=== PATIENT | female | born 1930 | race Caucasian/White ===

== ENCOUNTER 2016-07-23 06:50 | Outpatient (CLI) ==
[2016-07-23 07:13] VITALS: BMI 21.9
== END 2016-07-23 06:51 | disposition home or self-care (01) ==
LOC: AMBL 06:50
PROVIDERS: ATTEND Family Medicine
DX: J18.9 Pneumonia, unspecified organism (principal); R06.02 Shortness of breath; R05 Cough; R06.2 Wheezing; R09.89 Other specified symptoms and signs involving the circulatory and respiratory systems; R00.0 Tachycardia, unspecified

== ENCOUNTER 2016-07-23 07:02 | Emergency (ER) ==
[2016-07-23 07:13] VITALS: BP 144/63; TEMP 99.1; BMI 21.9
--- NOTE | 2016-07-23 07:21 | ED.PDOC ---
General ED Provider: Dr. MINERVA SHERIFF JR Chief Complaint: Respiratory Complaint Stated Complaint: patient states she has a cough prod. of thick yellow phlegm. states she has been short of breath. states has nasal drainage going down back of throat.[ End ]2 weeks and more DNR 99.1 102 24 100 144/63 10/20 Time Seen by Physician: 07:22 Mode of Arrival: Walk-In Information Source: Patient Exam Limitations: No limitations Nursing and Triage Documentation Reviewed and Agree: No Review of Systems - Review Of Systems Constitutional: Reports: Chills, Malaise, Weakness, Other (uri ) Eyes: Reports: No symptoms Ears, Nose, Mouth, Throat: Reports: Nose pain, Nose discharge, Throat pain Respiratory: Reports: Cough (yellow sputum), Short of air, Wheezing Cardiac: Reports: Other GI: Reports: No symptoms : Reports: No symptoms Musculoskeletal: Reports: No symptoms Skin: Reports: No symptoms Neurological: Reports: Headache Endocrine: Reports: No symptoms Hematologic/Lymphatic: Reports: No symptoms All Other Systems: Other Past Medical History - Past Medical History Endocrine: Reports: Hypothyroid Cardiovascular: Reports: CAD Respiratory: Reports: COPD Hematological: Reports: None Gastrointestinal: Reports: PUD Genitourinary: Reports: None Neuro/Psych: Reports: None Musculoskeletal: Reports: None Cancer: Reports: Lung Last Menstrual Period: n/a Other Pertinent Past Medical History: glaucoma - Surgical History General Surgical History: Reports: Pacemaker, Other (upper left lung removed pacemaker[ End ]glaucoma ca thy copd cad) - Family History Family History: Reports: Unknown - Social History Smoking Status: Former smoker Hx Substance Use: No Alcohol Screening: Occasionally Physical Exam - Physical Exam Appearance: Ill-appearing, Thin Ill-appearing: Moderate Pain Distress: Moderate Eyes: NATALYA, EOMI, Conjunctiva clear ENT: Ears normal, Nose normal, Oropharynx normal Neck: Supple Respiratory: Airway patent, Breath sounds diminished, Crackles, Rhonchi Cardiovascular: RRR, Pulses normal, No rub, No murmur GI/: Soft, Nontender, No masses, Bowel sounds normal, No Organomegaly Musculoskeletal: Normal strength, ROM intact, No edema, No calf tenderness Skin: Warm, Dry, Normal color Neurological: Sensation intact, Motor intact, Reflexes intact, Cranial nerves intact, Alert, Oriented Psychiatric: Affect appropriate, Mood appropriate, Anxious Interpretation - Radiology Interpretation Radiology Interpretation By: Radiologist Radiology Results: Positive Exam Interpreted: CXR (JACI possible pneumonia) Radiology Interpretation By: Radiologist Radiology Results: Positive Exam Interpreted: CT Scan (consistent with JACI and right hilar pneumonia) - EKG Interpretation Time of EKG #1: 07:35 Rate: Normal Rhythm: Sinus ST Segment: Other (nonspecific st changes) Physician Notification - Case Discussed Physician Notified: gerardo khan iris- will call back Time of Notification: 10:51 (ans service) Critical Care Note - Critical Care Note Total Time (mins): 10 Course - Course Hematology/Chemistry: 07/23/16 07:50 07/23/16 07:35 Orders, Labs, Meds: Lab Review 07/23/16 07/23/16 07/23/16 07:22 07:35 07:50 WBC 9.13 RBC 2.79 L Hgb 7.0 L Hct 23.1 L MCV 82.8 MCH 25.1 L MCHC 30.3 L RDW Coeff of Nuha 17.2 H Plt Count 350 Immature Gran % (Auto) 0.3 Neut % (Auto) 79.7 Lymph % (Auto) 12.4 [place] % (Auto) 5.9 Eos % (Auto) 1.4 Baso % (Auto) 0.3 Immature Gran # (Auto) 0.0 Neut # 7.3 H Lymph # 1.1 [place] # 0.5 Eos # 0.1 Baso # 0.0 Puncture Site Rb O2 Saturation 93.0 L ABG pH 7.431 ABG pCO2 35.3 ABG pO2 64.0 L ABG HCO3 23.5 ABG Total CO2 25 ABG Base Excess -1 FiO2 % 21.0 Sodium 136 Potassium 3.9 Chloride 102 Carbon Dioxide 24 Anion Gap 13.9 BUN 14 Creatinine 0.85 Estimated GFR (MDRD) 64.00 BUN/Creatinine Ratio 16.47 Glucose 101 Lactic Acid 9.6 Calcium 8.9 Total Bilirubin 0.20 AST 10 L ALT 7 L Alkaline Phosphatase 54 Total Creatine Kinase 30 Troponin I < 0.0100 B-Natriuretic Peptide 160 H Total Protein 7.4 Albumin 3.1 L Globulin 4.3 Albumin/Globulin Ratio 0.72 Procalcitonin < 0.05 TSH 7.637 H Orders Category Date Time Status ABG DRAW REQUEST Stat CARDIO 07/23/16 07:24 Completed EKG-(ED ONLY) Stat CARDIO 07/23/16 07:22 Completed NEBULIZER TREATMENT Stat CARDIO 07/23/16 09:46 Completed ED APPLY O2 .ONCE EMERGENCY 07/23/16 07:22 Active ED METALLURGIST PROCESS APPLIED .ONCE EMERGENCY 07/23/16 07:22 Active ED IV/MEDIPORT/POWERPORT .ONCE EMERGENCY 07/23/16 07:22 Active ABG Stat LAB 07/23/16 07:22 Completed B-TYPE NATRIURETIC PEPTIDE Stat LAB 07/23/16 07:35 Completed BLOOD CULTURE Stat LAB 07/23/16 07:35 Received CBC W/ AUTO DIFF Stat LAB 07/23/16 07:50 Completed COMPREHENSIVE METABOLIC PANEL Stat LAB 07/23/16 07:35 Completed CREATINE KINASE Stat LAB 07/23/16 07:35 Completed LACTIC ACID Stat LAB 07/23/16 07:35 Completed PROCALCITONIN Stat LAB 07/23/16 07:35 Completed THYROID STIMULATING HORMONE Stat LAB 07/23/16 07:35 Completed TROPONIN I Stat LAB 07/23/16 07:35 Completed 0.9 % Sodium Chloride [Saline Flush] MEDS 07/23/16 07:22 Active 1 syr IVF PRN PRN Albuterol Sulfate 0.083% Neb [Albuterol 0.083% Neb] MEDS 07/23/16 09:46 Discontinued 1 vial NEB ONCE STA Azithromycin Inj [Zithromax] 500 mg MEDS 07/23/16 09:45 Discontinued 0.9 % Sodium Chloride [Sodium Chloride] 250 ml IV ONCE Ceftriaxone Sodium [Rocephin] MEDS 07/23/16 09:49 Discontinued 1 gm .ROUTE .STK-MED ONE Ceftriaxone Sodium [Rocephin] 1 gm MEDS 07/23/16 09:45 Discontinued 0.9 % Sodium Chloride [Sodium Chloride] 50 ml IV ONCE Methylprednisolone Sod Succ/Pf [Solu-Medrol 125 mg] MEDS 07/23/16 09:45 Discontinued 125 mg IVP ONCE STA Sodium Chloride 0.9% [Sodium Chloride] 1,000 ml MEDS 07/23/16 08:22 Active IV 100 mls/hr CHEST, 2 VIEWS PA & LAT Stat RADS 07/23/16 07:[address] CHEST W/O CONTRAST Stat RADS 07/23/16 08:39 Completed Medications Generic Name Dose Route Start Last Admin Trade Name Freq PRN Reason Stop Dose Admin Sodium Chloride 1,000 mls @ 100 mls/hr 07/23/16 08:22 07/23/16 08:23 Sodium Chloride IV 07/23/16 18:21 100 mls/hr .Q10H STA Administration Sodium Chloride 1 syr 07/23/16 07:22 Saline Flush IVF PRN PRN To flush IV Discontinued Medications Generic Name Dose Route Start Last Admin Trade Name Lesq PRN Reason Stop Dose Admin Albuterol Sulfate 1 vial 07/23/16 09:46 07/23/16 10:09 Albuterol 0.083% Neb NEB 07/23/16 09:47 1 vial ONCE STA Administration Azithromycin 500 mg/ Sodium 250 mls @ 125 mls/hr 07/23/16 09:45 07/23/16 10: 58 Chloride IV 07/23/16 11:44 125 mls/hr ONCE STA Administration Ceftriaxone Sodium 1 gm/ 50 mls @ 75 mls/hr 07/23/16 09:45 07/23/16 10:08 Sodium Chloride IV 07/23/16 10:24 75 mls/hr ONCE STA Administration Methylprednisolone Sodium Succinate 125 mg 07/23/16 09:45 07/23/16 10:07 Solu-Medrol 125 Mg IVP 07/23/16 09:46 125 mg ONCE STA Administration Vital Signs: Temp Pulse Resp BP Pulse Ox 07/23/16 07:07 99.1 F 102 H 24 144/63 H 100 Departure - Departure Time of Disposition: 12:47 Disposition: TSF SHORT-TRM HOSP Discharge Problem: Pneumonia Qualifiers: Pneumonia type: due to unspecified organism Laterality: bilateral Lung location : upper lobe of lung Qualifier Code: (J18.9) Pneumonia, unspecified organism Anemia Qualifiers: Anemia type: unspecified type Qualifier Code: (D64.9) Anemia, unspecified Bleeding gastrointestinal Qualifiers: GI bleed type/associated pathology: unspecified gastrointestinal hemorrhage type Qualifier Code: (K92.2) Gastrointestinal hemorrhage, unspecified Instructions: Bacterial Pneumonia (ED) Condition: Fair Pt referred to PMD for follow-up: Yes (transfer) Allergies/Adverse Reactions: Allergies No Known Allergies Allergy (Unverified 07/23/16 11:33) Home Medications: Ambulatory Orders Acetaminophen 325 mg PO Q6H PRN 07/23/16 Bimatoprost Opth [Lumigan] 1 drop OP DAILY 07/23/16 Calcium Carbonate/Vitamin D3 [Calcium 250-Vit D3 125 Tablet] 1 each PO DAILY 03/29 Cholecalciferol (Vitamin D3) [Vitamin D3] 400 unit PO DAILY 07/23/16 Cyanocobalamin (Vitamin B-12) [Vitamin B-12] 100 mcg PO DAILY 07/23/16 Ferrous Sulfate 325 mg PO DAILY 07/23/16 Levothyroxine Sodium [Tirosint] 75 mcg PO DAILY 07/23/16 Pantoprazole Sodium [Protonix] 40 mg PO DAILY 07/23/16 Timolol Maleate 0.5% [Timoptic 0.5% Opth] 1 drop OP BID 07/23/16
[2016-07-23] MEDS ORDERED: SODIUM CHLORIDE 1,000 ML IV STA ×2 (07:22→08:22)
[2016-07-23 07:49] LABS: ABG BASE EXCESS -1 (-2.0-2.0); ABG HCO3 23.5 (22.0-26.0); ABG PCO2 35.3 mmHg (35-45); ABG PH 7.431 (7.35-7.45); ABG TCO2 25 (22.0-28.0)
[2016-07-23 08:01] LABS: BASOPHILS % (AUTO) 0.3 % (0.0-3.0); EOSINOPHILS # (AUTO) 0.1 K/ul (0.0-0.7); EOSINOPHILS % (AUTO) 1.4 % (0.0-7.0); HEMATOCRIT 23.1 % (37.0-47.0); IMMATURE GRANULOCYTE % (AUTO) 0.3 % (0.0-5.0); LYMPHOCYTES # (AUTO) 1.1 K/uL (0.60-3.4); LYMPHOCYTES % (AUTO) 12.4 (10.0-50.0); MEAN CORPUSCULAR HEMOGLOBIN 25.1 pg (27.0-31.0); MEAN CORPUSCULAR HGB CONC 30.3 (31.8-35.4); MEAN CORPUSCULAR VOLUME 82.8 fl (81.0-99.0); MONOCYTES # (AUTO) 0.5 K/uL (0.4-2.0); MONOCYTES % (AUTO) 5.9 (0-10); NEUTROPHILS # (AUTO) 7.3 K/ul (2.0-6.9); NEUTROPHILS % (AUTO) 79.7; PLATELET COUNT 350 10^3/uL (140-440); RED BLOOD COUNT 2.79 10^6/ul (4.20-5.40); WHITE BLOOD COUNT 9.13 K/ul (4.6-10.2)
--- NOTE | 2016-07-23 08:21 | DI ---
EXAM: Chest two views HISTORY: Cough COMPARISON: None TECHNIQUE: Two views of the chest were performed FINDINGS: Right chest port terminates in superior vena cava. There is left-sided cardiac pacer. Hea rt is normal in size. Mediastinal contour normal, noting atherosclerosis. There is ill-defined lef t upper lobe opacity with additional areas of lucency. Postsurgical clips seen in the left hilar re gion with suture line seen left lung apex. No pleural effusion or pneumothorax. IMPRESSION: Postsurgical change left upper lobe. In this region, there is ill-defined opacity that could could represent scarring, though malignant or infectious etiology not excluded. Additional a reas of lucency in this region could relate to the scarring, though areas of cavitation not excluded . No prior studies available for comparison. CT recommended for further evaluation. Report faxed at time of dictation.
[2016-07-23 08:41] LABS: ALANINE AMINOTRANSFERASE 7 U/L (12-78); ALBUMIN 3.1 g/dL (3.4-5.0); ALBUMIN/GLOBULIN RATIO 0.72; ALKALINE PHOSPHATASE 54 U/L (53-141); ANION GAP 13.9; ASPARTATE AMINO TRANSFERASE 10 U/L (15-37); BLOOD UREA NITROGEN 14 mg/dL (7-18); BUN/CREATININE RATIO 16.47; CALCIUM 8.9 mg/dL (8.2-10.2); CARBON DIOXIDE 24 mmol/L (23-31); CHLORIDE 102 mmol/L (98-107); CREATINE KINASE 30 U/L; CREATININE 0.85 mg/dL (0.60-1.30); GLUCOSE 101 mg/dL (82-115); POTASSIUM 3.9 mmol/L (3.5-5.10); SODIUM 136 mmol/L (136-145); TOTAL PROTEIN 7.4 g/dL (5.8-8.1)
--- NOTE | 2016-07-23 09:39 | CT ---
Exam: CT examination of the chest without intravenous contrast administration. Comparison: Chest x-ray performed on the same day. Reason for exam: Left upper lobe infiltrate. Chronic versus acute. FINDINGS: Image interpretation is limited by the lack of intravenous contrast. Operative changes are seen after partial left upper lobectomy. There are dense consolidative change s in the left upper lobe with cavitary lesions/emphysematous bulla and pleural thickening. There al so consolidative changes seen in the right hilar region and left lower lobe with bullous formation. 5 mm nodule in the left lower lobe is seen on axial image number 45. Emphysematous disease is seen throughout the lung parenchyma. The partially imaged right-sided intracardiac device. Mesenteric lymph nodes are not adequately apurva luated without intravenous contrast administration. There is densely calcified atherosclerotic disease of the aorta. Within the partially imaged upper abdomen there are multiple renal hypodensities the largest of whic h measures 4.3 cm (15 HU) in the superior right renal pole. There are multiple rounded hepatic hypodensities throughout the liver measuring up to 2 cm. The gallbladder is been removed. The left adrenal gland has a nodular appearance. Impression: 1. Consolidative changes in the left upper lobe with either emphysematous bulla or cavitary lesions and pleural thickening. Imaging findings are consistent with pneumonia. Neoplasia could also have a similar appearance. 2. Small consolidations are seen in the right hilar region and left lung base. Imaging findings porter ggest pneumonia. 3. Emphysematous disease is seen throughout the lung parenchyma. There is a 5 mm nodule in the lef t lower lobe. Recommend follow-up imaging to document stability. 3. Multiple hepatic hypodensities throughout the liver are incompletely evaluated without contrast administration. These findings can be seen with a hepatic cyst, hemangiomas, and metastatic disease . Recommend correlation with prior imaging and consider contrast examination. 4. Multiple cystic structures within the kidneys. Recommend ultrasound evaluation for further sherry cterization. 5. Nodular left adrenal gland. Recommend comparison with prior imaging and further evaluation. Image interpretation was faxed to [facility] emergency room at [id number] hours on the day o exam.
[2016-07-23] MEDS ORDERED: ZITHROMAX 500 MG in SODIUM CHLORIDE 250 ML IV STA (09:45)
[2016-07-23] MEDS ORDERED: ROCEPHIN 1 GM in SODIUM CHLORIDE 50 ML IV STA (09:45)
[2016-07-23] MEDS ORDERED: SOLU-MEDROL 125 MG IVP STA (09:45)
[2016-07-23] MEDS ORDERED: ALBUTEROL 0.083% NEB NEB STA (09:46)
[2016-07-23] MEDS ORDERED: ROCEPHIN ONE (09:49)
== END 2016-07-23 13:35 | disposition short-term general hospital (02) ==
LOC: ED 07:02
DX: J18.9 Pneumonia, unspecified organism (principal); D64.9 Anemia, unspecified; K92.2 Gastrointestinal hemorrhage, unspecified; R06.02 Shortness of breath; I25.10 Atherosclerotic heart disease of native coronary artery without angina pectoris; E03.9 Hypothyroidism, unspecified; J44.9 Chronic obstructive pulmonary disease, unspecified; Z79.899 Other long term (current) drug therapy; Z95.0 Presence of cardiac pacemaker; Z85.118 Personal history of other malignant neoplasm of bronchus and lung
CPT/HCPCS: 36415; 80053; 82550; 82803; 83605; 83880; 84145; 84443; 84484; 85025; 87040; 93005; 93010; 94640; 96365; 96367; 96375; 99285

== ENCOUNTER 2016-08-07 12:56 | Outpatient (CLI) ==
[2016-08-07 13:35] LABS: ANION GAP 14.1; BUN/CREATININE RATIO 20.93; CALCIUM 8.5 mg/dL (8.2-10.2); CREATININE 0.86 mg/dL (0.60-1.30); POTASSIUM 4.1 mmol/L (3.5-5.10)
[2016-08-07 13:59] LABS: BASOPHILS % (AUTO) 0.3 % (0.0-3.0); EOSINOPHILS # (AUTO) 0.2 K/ul (0.0-0.7); EOSINOPHILS % (AUTO) 2.6 % (0.0-7.0); HEMATOCRIT 30.7 % (37.0-47.0); HEMOGLOBIN 9.7 g/dl (12.0-16.0); IMMATURE GRANULOCYTE % (AUTO) 0.5 % (0.0-5.0); LYMPHOCYTES # (AUTO) 1.2 K/uL (0.60-3.4); LYMPHOCYTES % (AUTO) 20.5 (10.0-50.0); MEAN CORPUSCULAR HEMOGLOBIN 27.4 pg (27.0-31.0); MEAN CORPUSCULAR HGB CONC 31.6 (31.8-35.4); MEAN CORPUSCULAR VOLUME 86.7 fl (81.0-99.0); MONOCYTES # (AUTO) 0.4 K/uL (0.4-2.0); MONOCYTES % (AUTO) 6.5 (0-10); NEUTROPHILS # (AUTO) 4.1 K/ul (2.0-6.9); NEUTROPHILS % (AUTO) 69.6; PLATELET COUNT 237 10^3/uL (140-440); RED BLOOD COUNT 3.54 10^6/ul (4.20-5.40); WHITE BLOOD COUNT 5.86 K/ul (4.6-10.2)
== END 2016-08-07 12:57 | disposition home or self-care (01) ==
LOC: NONPT 12:56
PROVIDERS: ATTEND Family Medicine
DX: J18.9 Pneumonia, unspecified organism (principal); N18.9 Chronic kidney disease, unspecified; D63.1 Anemia in chronic kidney disease
CPT/HCPCS: 80048; 83540; 85025

== ENCOUNTER 2017-01-20 09:34 | Outpatient (CLI) ==
[2017-01-20 10:29] VITALS: BP 126/72; TEMP 98
[2017-01-20] MEDS: INFED IVP STA (10:45)
[2017-01-20] MEDS: SODIUM CHLORIDE IV STA (12:07)
[2017-01-20] MEDS: INFED IV STA (12:07)
== END 2017-01-20 09:35 | disposition home or self-care (01) ==
LOC: OPMED 09:34
PROVIDERS: ATTEND Family Medicine
DX: N18.3 Chronic kidney disease, stage 3 (moderate) (principal); D63.1 Anemia in chronic kidney disease; E61.1 Iron deficiency
CPT/HCPCS: 96366; 96374

== ENCOUNTER 2017-04-07 09:24 | Outpatient (CLI) ==
--- NOTE | 2017-04-07 10:35 | DI ---
EXAM: Chest two view, frontal and lateral views. HISTORY: Cough. COMPARISON: 07/23/2016. FINDINGS: Right-sided chest port and left-sided pacemaker again noted. Partial left lung resection changes noted with left apical and perihilar consolidation and left basilar scarring/fibrosis noted, not significantly change since the prior examination. Right lung is clear. No pleural effusion or p neumothorax identified. No acute osseous abnormality detected. Clips seen in the right upper abdome n. IMPRESSION: Stable post-treatment changes of the left lung. Continued follow-up is recommended.
[2017-04-07 11:37] LABS: HEMATOCRIT 26.6 % (37.0-47.0); HEMOGLOBIN 8.3 g/dl (12.0-16.0)
[2017-04-07] MEDS: INFED IVP STA (11:44)
[2017-04-07 15:29] VITALS: BP 103/59; TEMP 97.9
[2017-04-07] MEDS: INFED 975 MG in SODIUM CHLORIDE 500 ML IV STA (15:30)
== END 2017-04-07 09:25 | disposition home or self-care (01) ==
LOC: OPMED 09:24
PROVIDERS: ATTEND Family Medicine
DX: N18.3 Chronic kidney disease, stage 3 (moderate) (principal); D63.1 Anemia in chronic kidney disease; K92.2 Gastrointestinal hemorrhage, unspecified; R19.5 Other fecal abnormalities; E61.1 Iron deficiency; R05 Cough
CPT/HCPCS: 36415; 36430; 85014; 85018; 86850; 86900; 86922; 96365; 96366

== ENCOUNTER 2017-04-22 08:49 | Outpatient (CLI) ==
[2017-04-22] MEDS ORDERED: INFED 1,000 MG in SODIUM CHLORIDE 500 ML IV STA (09:34)
[2017-04-22 10:37] VITALS: BP 124/64; TEMP 97.6
== END 2017-04-22 08:50 | disposition home or self-care (01) ==
LOC: OPMED 08:49
PROVIDERS: ATTEND Family Medicine
DX: N18.3 Chronic kidney disease, stage 3 (moderate) (principal); D63.1 Anemia in chronic kidney disease; E61.1 Iron deficiency; K92.1 Melena; K92.2 Gastrointestinal hemorrhage, unspecified
CPT/HCPCS: 96365; 96366

== ENCOUNTER 2017-05-09 08:37 | Outpatient (CLI) ==
[2017-05-09] MEDS ORDERED: INFED 1,000 MG in SODIUM CHLORIDE 500 ML IV STA (08:52)
[2017-05-09 09:02] VITALS: BP 97/58; TEMP 97.4
== END 2017-05-09 08:38 | disposition home or self-care (01) ==
LOC: OUTPT 08:37
PROVIDERS: ATTEND Family Medicine
DX: N18.3 Chronic kidney disease, stage 3 (moderate) (principal); D63.1 Anemia in chronic kidney disease; K92.2 Gastrointestinal hemorrhage, unspecified; R19.5 Other fecal abnormalities
CPT/HCPCS: 96366

== ENCOUNTER 2017-06-11 07:44 | Outpatient (CLI) ==
[2017-06-11 08:00] VITALS: BP 146/68; TEMP 98.4
[2017-06-11] MEDS ORDERED: INFED 1,000 MG in SODIUM CHLORIDE 500 ML IV STA (08:02)
== END 2017-06-11 07:45 | disposition home or self-care (01) ==
LOC: OPMED 07:44
PROVIDERS: ATTEND Family Medicine
DX: N18.3 Chronic kidney disease, stage 3 (moderate) (principal); D63.1 Anemia in chronic kidney disease; E61.1 Iron deficiency; K92.2 Gastrointestinal hemorrhage, unspecified; R19.5 Other fecal abnormalities
CPT/HCPCS: 96365; 96366

== ENCOUNTER 2017-06-27 09:40 | Inpatient (IN) ==
--- NOTE | 2017-06-27 10:01 | ED.PDOC ---
General ED Provider: Dr. SPEEDY SMITH Chief Complaint: Weakness Stated Complaint: Feeling very badly. Has been short of breath. No fever or chills. Denies chest pain. Has become progressive weight loss, poor appetite and has recurrent iron deficiency anemia. She has fallen several times and brought to ER for Evaluation. Denies previous colonoscopy. Currently has been experiencing some shortness of breath improved with oxygen, and using nebulizer therapy. Pos for hemoptysis. Time Seen by Physician: 10:00 Mode of Arrival: Ambulance Information Source: Patient, EMT Exam Limitations: No limitations Primary Care Provider: ELEAZAR PIZARRO Referred to ED by: PCP Nursing and Triage Documentation Reviewed and Agree: Yes Reviewed sepsis parameters & appropriate labs ordered?: Yes System Inflammatory Response Syndrome: Pulse >90 BPM, Resp >20/Minute Sepsis Protocol: For patient's 13 years and over: Temp is 96.8 and below OR 101 and greater Pulse >90 BPM Resp >20/minute Acutely Altered Mental Status Are patient's symptoms suggestive of a new infection, such as: -Pneumonia -Skin, Soft Tissue -Endocarditis -UTI -Bone, Joint Infection -Implantable Device -Acute Abdominal Infection -Wound Infection -Meningitis -Blood Stream Catheter Infection -Unknown Respiratory Complaint Exam - Shortness of Air Complaint/Exam Symptoms Are: Still present Timing: Intermittent Initial Severity: Mild Current Severity: Mild Character: Reports: Dyspnea at rest, Dyspnea on exertion Aggravating: Reports: Movement Alleviating: Reports: Bronchodilators, Oxygen Associated Signs and Symptoms: Reports: Cough, Wheezing Related History: Reports: Similar episode History of Healthcare-Acquired Pneumonia: Lives at custodial Pulmonary Embolism Risk Factors: Reports: None Cardiac Risk Factors: Reports: None Pseudomonas Risk Factors: Reports: None Tuberculosis Risk Factors: Reports: None Home Oxygen Use: Yes Recent Stress Test: No Recent Echo/LV Function: No Respiratory Distress: None Stridor Present: No Tracheal Deviation: No Subcutaneous Emphysema: No Accessory Muscle Use: No Retractions: Not Present Diminished Breath Sounds: No Prolonged Expiratory Phase: No Unable to Speak Full Sentences: No Fatigue: Yes Leg Swelling: No Marialuisa's Sign Present: No Grunting Respirations: No Kussmaul Respirations: No Differential Diagnoses: COPD Exacerbation, URI, Other (pulmonary malignancy) Quality Indicators for AMI: EKG in 10min. Quality Indicator For Non-Traumatic Chest Pain/Syncope: EKG Performed Quality Indicators For Pneumonia/CAP: Blood Cultures-SCU admit, Antibiotics in 6hr-admit, Vital signs, Mental status assessed Related Surgical History: Reports: None Review of Systems - Review Of Systems Constitutional: Reports: Fever, Weakness, Loss of appetite Eyes: Reports: No symptoms Ears, Nose, Mouth, Throat: Reports: No symptoms Respiratory: Reports: Cough, Short of air Cardiac: Reports: No symptoms GI: Reports: No symptoms : Reports: No symptoms Musculoskeletal: Reports: No symptoms Skin: Reports: No symptoms Neurological: Reports: Weakness Endocrine: Reports: No symptoms Hematologic/Lymphatic: Reports: Anemia All Other Systems: Reviewed and Negative Past Medical History - Past Medical History Endocrine: Reports: Hypothyroid Cardiovascular: Reports: CAD Respiratory: Reports: COPD Hematological: Reports: None Gastrointestinal: Reports: PUD Genitourinary: Reports: None Neuro/Psych: Reports: None Musculoskeletal: Reports: None Cancer: Reports: Lung Last Menstrual Period: na Other Pertinent Past Medical History: glaucoma - Surgical History General Surgical History: Reports: Pacemaker, Other (upper left lung removed pacemaker[ End ]glaucoma ca thy copd cad) - Family History Family History: Reports: Unknown - Social History Smoking Status: Former smoker Hx Substance Use: No Alcohol Screening: None - Immunizations Tetanus Shot up to Date: No Influenza Vaccine within 12 Months: Yes Physical Exam - Physical Exam Appearance: Ill-appearing Ill-appearing: Moderate Pain Distress: None Eyes: NATALYA, EOMI, Conjunctiva clear ENT: Ears normal, Nose normal, Oropharynx normal Respiratory: Airway patent, Breath sounds diminished (abnormal chest xray questionable Pneumonia vs mass), Respirations nonlabored, Wheezes Cardiovascular: RRR, Pulses normal, No rub, No murmur GI/: Soft, Nontender, No masses, Bowel sounds normal, No Organomegaly Musculoskeletal: Normal strength Skin: Warm, Dry, Normal color Neurological: Sensation intact, Motor intact, Reflexes intact, Cranial nerves intact, Alert, Oriented Psychiatric: Affect appropriate, Mood appropriate Interpretation - Radiology Interpretation Radiology Interpretation By: Radiologist Exam Interpreted: CXR Xray Comments: poss infiltrate/pneumonia/cavitary lesion Physician Notification - Case Discussed Physician Notified: Dr Pizarro Time of Notification: 15:30 (agrees to accept pt for admission ) Critical Care Note - Critical Care Note Total Time (mins): 30 Course - Course Hematology/Chemistry: 06/30/17 04:45 06/30/17 04:45 Orders, Labs, Meds: Lab Review 06/27/17 06/27/17 06/27/17 10:30 10:46 10:55 WBC 9.71 RBC 3.23 L Hgb 9.6 L Hct 30.0 L MCV 92.9 MCH 29.7 MCHC 32.0 RDW Coeff of Nuha 17.2 H Plt Count 255 Immature Gran % (Auto) 0.7 Neut % (Auto) 87.7 Lymph % (Auto) 5.1 L Sterling % (Auto) 6.0 Eos % (Auto) 0.4 Baso % (Auto) 0.1 Immature Gran # (Auto) 0.1 Neut # (Auto) 8.5 H Lymph # (Auto) 0.5 L Sterling # (Auto) 0.6 Eos # (Auto) 0.0 Baso # (Auto) 0.0 ESR 106 H D-Dimer (Manual) Puncture Site R rad O2 Saturation 93.0 L ABG pH 7.432 ABG pCO2 35.1 ABG pO2 66.0 L ABG HCO3 23.4 ABG Total CO2 24 ABG Base Excess -1 Micah Test + FiO2 % 21.0 Sodium Potassium Chloride Carbon Dioxide Anion Gap BUN Creatinine Estimated GFR (MDRD) BUN/Creatinine Ratio Glucose Lactic Acid Calcium Magnesium Total Bilirubin AST ALT Alkaline Phosphatase Total Creatine Kinase Troponin I B-Natriuretic Peptide Total Protein Albumin Globulin Albumin/Globulin Ratio Procalcitonin Urine Color Urine Clarity Urine pH Ur Specific [place] Urine Protein Urine Glucose (UA) Urine Ketones Urine Blood Urine Nitrite Urine Bilirubin Urine Urobilinogen Ur Leukocyte Esterase Urine Microscopic RBC Urine Microscopic WBC Ur Squamous Epith Cells Ur Transition Epith Cell Ur Renal Epithelial Cell Amorphous Sediment Urine Bacteria Urine Yeast Influ A Molecular Assay Negative by naat Influ B Molecular Assay Negative by naat 06/27/17 06/27/17 06/27/17 10:55 10:55 10:55 WBC RBC Hgb Hct MCV MCH MCHC RDW Coeff of Nuha Plt Count Immature Gran % (Auto) Neut % (Auto) Lymph % (Auto) Sterling % (Auto) Eos % (Auto) Baso % (Auto) Immature Gran # (Auto) Neut # (Auto) Lymph # (Auto) Sterling # (Auto) Eos # (Auto) Baso # (Auto) ESR D-Dimer (Manual) 2238.85 Puncture Site O2 Saturation ABG pH ABG pCO2 ABG pO2 ABG HCO3 ABG Total CO2 ABG Base Excess Micah Test FiO2 % Sodium 139 Potassium 3.5 Chloride 102 Carbon Dioxide 24 Anion Gap 16.5 BUN 20 H Creatinine 0.59 L Estimated GFR (MDRD) 97.00 BUN/Creatinine Ratio 33.89 Glucose 85 Lactic Acid Calcium 9.1 Magnesium 1.7 Total Bilirubin 0.3 AST 23 ALT 23 Alkaline Phosphatase 61 Total Creatine Kinase 8 Troponin I 0.0160 B-Natriuretic Peptide Total Protein 7.0 Albumin 1.9 L Globulin 5.1 Albumin/Globulin Ratio 0.37 Procalcitonin 0.09 Urine Color Urine Clarity Urine pH Ur Specific [place] Urine Protein Urine Glucose (UA) Urine Ketones Urine Blood Urine Nitrite Urine Bilirubin Urine Urobilinogen Ur Leukocyte Esterase Urine Microscopic RBC Urine Microscopic WBC Ur Squamous Epith Cells Ur Transition Epith Cell Ur Renal Epithelial Cell Amorphous Sediment Urine Bacteria Urine Yeast Influ A Molecular Assay Influ B Molecular Assay 06/27/17 06/27/17 06/27/17 10:55 10:55 11:50 WBC RBC Hgb Hct MCV MCH MCHC RDW Coeff of Nuha Plt Count Immature Gran % (Auto) Neut % (Auto) Lymph % (Auto) Sterling % (Auto) Eos % (Auto) Baso % (Auto) Immature Gran # (Auto) Neut # (Auto) Lymph # (Auto) Sterling # (Auto) Eos # (Auto) Baso # (Auto) ESR D-Dimer (Manual) Puncture Site O2 Saturation ABG pH ABG pCO2 ABG pO2 ABG HCO3 ABG Total CO2 ABG Base Excess Micah Test FiO2 % Sodium Potassium Chloride Carbon Dioxide Anion Gap BUN Creatinine Estimated GFR (MDRD) BUN/Creatinine Ratio Glucose Lactic Acid 9.4 Calcium Magnesium Total Bilirubin AST ALT Alkaline Phosphatase Total Creatine Kinase Troponin I B-Natriuretic Peptide 217 H Total Protein Albumin Globulin Albumin/Globulin Ratio Procalcitonin Urine Color Dark Urine Clarity Slightly Urine pH 5.5 Ur Specific [place] >=1.030 Urine Protein 1+ Urine Glucose (UA) Negative Urine Ketones 2+ Urine Blood Negative Urine Nitrite Negative Urine Bilirubin 2+ Urine Urobilinogen 1.0 Ur Leukocyte Esterase Trace Urine Microscopic RBC 5-10 Urine Microscopic WBC 5-10 Ur Squamous Epith Cells 5-10 Ur Transition Epith Cell 0-2 Ur Renal Epithelial Cell 0-2 Amorphous Sediment 1+ Urine Bacteria 3+ Urine Yeast Trace Influ A Molecular Assay Influ B Molecular Assay Orders Category Date Time Status ADMIT PATIENT [facility]PAT[facility] ADMISSION 06/27/17 15: 11 Active ABG DRAW REQUEST Stat CARDIO 06/27/17 10:01 Completed EKG-(ED ONLY) Stat CARDIO 06/27/17 10:02 Completed NEBULIZER TREATMENT Stat CARDIO 06/27/17 10:12 Completed TELEMETRY MONITORING TELE CARE 06/27/17 15:12 Completed IV [ED IV/MEDIPORT/POWERPORT] .ONCE EMERGENCY 06/27/17 10:01 Active Vital signs [ED VITAL SIGNS] DIRECTED EMERGENCY 06/27/17 10:14 Completed ARTERIAL BLOOD GAS [ABG] Stat LAB 06/27/17 10:46 Completed BLOOD CULTURE (ED ONLY) Stat LAB 06/27/17 10:30 Completed BNP [B-TYPE NATRIURETIC PEPTIDE] Stat LAB 06/27/17 10:55 Completed CBC W/ AUTO DIFF Stat LAB 06/27/17 10:55 Completed CMP [COMPREHENSIVE METABOLIC PANEL] Stat LAB 06/27/17 10:55 Completed CREATINE KINASE Stat LAB 06/27/17 10:55 Completed D-DIMER Stat LAB 06/27/17 10:55 Completed ESR Stat LAB 06/27/17 10:55 Completed FLU A & B MOLECULAR [FLU A/B MOLECULAR] Stat LAB 06/27/17 10:30 Completed LACTIC ACID Stat LAB 06/27/17 10:55 Completed MAGNESIUM Stat LAB 06/27/17 10:55 Completed PROCALCITONIN Stat LAB 06/27/17 10:55 Completed RAPID STREP SCREEN [MOLECULAR GROUP A STREP] Stat LAB 06/27/17 10:30 Completed SPUTUM CULTURE Stat LAB 06/28/17 05:00 Completed TROPONIN I Stat LAB 06/27/17 10:55 Completed UA [URINALYSIS C & S IF INDICATED] Stat LAB 06/27/17 11:50 Completed URINE CULTURE Stat LAB 06/27/17 11:50 Completed 0.9 % Sodium Chloride [Saline Flush] MEDS 06/27/17 10:01 Discontinued 1 syr IVF PRN PRN Azithromycin [Zithromax] MEDS 06/27/17 10:17 Discontinued 500 mg PO ONCE STA Ceftriaxone Sodium [Rocephin] MEDS 06/27/17 10:22 Discontinued 1 gm .ROUTE .STK-MED ONE Ceftriaxone Sodium [Rocephin] 1 gm MEDS 06/27/17 10:12 Discontinued 0.9 % Sodium Chloride [Sodium Chloride] 50 ml IV ONCE Levalbuterol HCl [Xopenex 0.63 mg] MEDS 06/27/17 10:11 Discontinued 1 vial NEB ONCE STA CHEST, 1V AP ONLY Stat RADS 06/27/17 10:01 Completed Medications Discontinued Medications Generic Name Dose Route Start Last Admin Trade Name Freq PRN Reason Stop Dose Admin Acetaminophen 325 mg 06/28/17 14:17 06/29/17 20:58 Tylenol PO 325 mg Q6H PRN Administration headache, mild pain Albuterol/Ipratropium 1 vial 06/28/17 10:00 07/01/17 14:30 Duoneb NEB 1 vial RTQID SANCHO Administration Albuterol/Ipratropium 1 vial 06/30/17 10:14 06/30/17 10:15 Duoneb NEB 06/30/17 10:15 1 vial ONCE STA Administration Azithromycin 500 mg 06/27/17 10:17 06/27/17 11:04 Zithromax PO 06/27/17 10:18 500 mg ONCE STA Administration Azithromycin 250 mg 06/28/17 10:30 07/01/17 09:42 Zithromax PO 250 mg DAILY SANCHO Administration Bimatoprost 1 drop 06/29/17 09:00 06/30/17 10:10 Lumigan OP Not Given DAILY SANCHO Bimatoprost 1 drop 06/30/17 21:00 06/30/17 21:14 Lumigan OP 1 drop BEDTIME SANCHO Administration Calcium/Vitamin D 1 each 06/29/17 09:00 07/01/17 09:42 Calcium 500 + Vit D 200 Mg Tablet PO 1 each DAILY SANCHO Administration Cholecalciferol 400 unit 06/29/17 09:00 07/01/17 09:42 Vitamin D PO 400 unit DAILY SANCHO Administration Ferrous Sulfate 324 mg 06/29/17 09:00 07/01/17 09:42 Ferrous Sulfate PO 324 mg DAILY SANCHO Administration Heparin Sodium (Beef Lung) 300 units 06/28/17 06:00 07/01/17 16:44 Heparin Flush IVF 300 units DAILY SANCHO Administration Heparin Sodium (Beef Lung) 30 unit 06/27/17 21:00 06/30/17 21:16 Heparin Flush IVF 30 unit TID SANCHO Administration Ceftriaxone Sodium 1 gm/ 50 mls @ 75 mls/hr 06/27/17 10:12 06/27/17 11:03 Sodium Chloride IV 06/27/17 10:51 75 mls/hr ONCE STA Administration Ceftriaxone Sodium 1 gm/ 50 mls @ 75 mls/hr 06/28/17 10:30 07/01/17 09:41 Sodium Chloride IV 75 mls/hr DAILY SANCHO Administration Insulin Human Regular 0 unit 06/29/17 21:07 07/01/17 17:29 Humulin R SUBCUT 3 unit PRN PRN Administration Hyperglycemica Protocol Levalbuterol HCl 1 vial 06/27/17 10:11 06/27/17 10:40 Xopenex 0.63 Mg NEB 06/27/17 10:12 1 vial ONCE STA Administration Levothyroxine Sodium 75 mcg 06/29/17 07:30 07/01/17 06:01 Synthroid PO 75 mcg QDAC SANCHO Administration Methylprednisolone Sodium Succinate 40 mg 06/28/17 21:00 07/01/17 09:43 Solu-Medrol 40 Mg IVP 40 mg Q12HR SANCHO Administration Non-Formulary Medication 100 mcg 06/29/17 09:00 07/01/17 09:42 Cyanocobalamin (Vitamin B-12) [Vitamin B-12] PO Not Given DAILY SANCHO Pantoprazole Sodium 40 mg 06/29/17 09:00 07/01/17 06:01 Protonix PO 40 mg QDAC SANCHO Administration Sodium Chloride 1 syr 06/27/17 10:01 06/29/17 18:15 Saline Flush IVF 1 syr PRN PRN Administration To flush IV Sodium Chloride 1 syr 06/28/17 13:00 07/01/17 16:44 Saline Flush IVF Not Given Q8HR SANCHO Timolol Maleate 1 drop 06/29/17 09:00 07/01/17 09:41 Timoptic 0.5% Opth OP 1 drop DAILY SANCHO Administration Vital Signs: Temp Pulse Resp BP Pulse Ox 06/27/17 09:50 97.6 F 107 H 36 H 135/75 95 Departure - Departure Time of Disposition: 15:45 Disposition: ADMITTED INPATIENT Discharge Problem: Weakness, Hyponatremia Pneumonia Qualifiers: Pneumonia type: due to unspecified organism Laterality: right Lung location: lower lobe of lung Qualified Code(s): J18.1 - Lobar pneumonia, unspecified organism COPD (chronic obstructive pulmonary disease) Qualifiers: COPD type: unspecified COPD Qualified Code(s): J44.9 - Chronic obstructive pulmonary disease, unspecified Condition: Poor Pt referred to PMD for follow-up: Yes IPMP verified?: No Allergies/Adverse Reactions: Allergies No Known Allergies Allergy (Unverified 06/27/17 10:16) Home Medications: Ambulatory Orders Acetaminophen 325 mg PO Q6H PRN 07/23/16 Bimatoprost Opth [Lumigan] 1 drop OP DAILY 07/23/16 Calcium Carbonate/Vitamin D3 [Calcium 250-Vit D3 125 Tablet] 1 each PO DAILY 03/29 Cholecalciferol (Vitamin D3) [Vitamin D3] 400 unit PO DAILY 07/23/16 Cyanocobalamin (Vitamin B-12) [Vitamin B-12] 100 mcg PO DAILY 07/23/16 Ferrous Sulfate 325 mg PO DAILY 07/23/16 Levothyroxine Sodium [Tirosint] 75 mcg PO DAILY 07/23/16 Pantoprazole Sodium [Protonix] 40 mg PO DAILY 07/23/16 Timolol Maleate 0.5% [Timoptic 0.5% Opth] 1 drop OP DAILY 07/23/16 Ceftriaxone Sodium [Rocephin] 1 gm IM DAILY 7 Days vial 07/01/17 Ipratropium/Albuterol Neb [Duoneb] 1 vial NEB RTQ6H #28 vial.neb 07/01/17 Prednisone 20 mg PO DAILYWM #30 tablet 07/01/17 Disposition Discussed With: Patient, Family
[2017-06-27] MEDS ORDERED: XOPENEX 0.63 MG NEB STA (10:11)
[2017-06-27] MEDS ORDERED: ROCEPHIN 1 GM in SODIUM CHLORIDE 50 ML IV STA (10:12)
[2017-06-27] MEDS ORDERED: ZITHROMAX 500 MG in SODIUM CHLORIDE 250 ML IV STA (10:13)
[2017-06-27] MEDS ORDERED: ZITHROMAX PO STA (10:17)
[2017-06-27] MEDS ORDERED: ROCEPHIN ONE (10:22)
--- NOTE | 2017-06-27 10:56 | DI ---
EXAM: Chest one view HISTORY: Shortness of breath, history of lung cancer COMPARISON: 04/07 10:17 TECHNIQUE: Single view of the chest was performed FINDINGS: Left-sided cardiac pacer. Heart normal in size. Mediastinal contour unchanged and athero sclerosis. Right chest port appears unchanged. Chronic opacity in the left mid lung with cavitation demonstrated on prior CT chest over 04/01/2017 poorly visualized. Extensive new infiltrates in the left mid to lower lung field. No definite pleural effusion. No visible pneumothorax. IMPRESSION: Chronic opacity in the left mid lung with cavitation demonstrated on prior CT chest over 04/01/2017 poorly visualized. Extensive new infiltrates in the left mid to lower lung field. Differe ntial diagnosis includes pneumonia and/or malignancy, or a combination of these etiologies. Recommend correlation with CT or short-term follow-up CT. Report faxed
[2017-06-27 16:39] VITALS: BMI 17.5
[2017-06-28] MEDS: DUONEB NEB SCH ×3 (10:40→20:25)
[2017-06-28] MEDS: ROCEPHIN 1 GM in SODIUM CHLORIDE 50 ML IV SCH (10:54)
[2017-06-28] MEDS: ZITHROMAX PO SCH (11:02)
[2017-06-28] MEDS: SOLU-MEDROL 40 MG IVP SCH ×2 (11:06→20:51)
[2017-06-28] MEDS: TYLENOL PO PRN (20:49)
[2017-06-29] MEDS: DUONEB NEB SCH ×5 (05:28→19:40)
[2017-06-29] MEDS ORDERED: VITAMIN D3 E PO SCH (09:00)
[2017-06-29] MEDS ORDERED: NON-FORMULARY MEDICATION (Ferrous Sulfate [Ferrous Sulfate] 325 MG) PO SCH (09:00)
[2017-06-29] MEDS ORDERED: [UNRECOGNIZED DRUG - OTHER] PO SCH (09:00)
[2017-06-29] MEDS ORDERED: CALCIUM CARBONATE PO SCH (09:00)
[2017-06-29] MEDS ORDERED: NON-FORMULARY MEDICATION (Cholecalciferol (Vitamin D3) [Vitamin D3] 400 UNIT) PO SCH (09:00)
[2017-06-29] MEDS ORDERED: NON-FORMULARY MEDICATION (Levothyroxine Sodium [Tirosint] 75 MCG) PO SCH (09:00)
[2017-06-29] MEDS: SYNTHROID PO SCH (10:50)
[2017-06-29] MEDS: PROTONIX PO SCH (10:51)
[2017-06-29] MEDS: VITAMIN D PO SCH (10:51)
[2017-06-29] MEDS: TIMOPTIC 0.5% OPTH OP SCH (10:51)
[2017-06-29] MEDS: CALCIUM 500 + VIT D 200 MG TABLET PO SCH (10:51)
[2017-06-29] MEDS: LUMIGAN OP SCH (10:52)
[2017-06-29] MEDS: FERROUS SULFATE PO SCH (10:52)
[2017-06-29] MEDS: ZITHROMAX PO SCH (10:58)
[2017-06-29] MEDS: SOLU-MEDROL 40 MG IVP SCH ×2 (10:59→22:39)
[2017-06-29] MEDS: ROCEPHIN 1 GM in SODIUM CHLORIDE 50 ML IV SCH (11:00)
[2017-06-29] MEDS: NON-FORMULARY MEDICATION (Cyanocobalamin (Vitamin B-12) [Vitamin B-12] 100 MCG) PO SCH (11:01)
[2017-06-29] MEDS: TYLENOL PO PRN ×2 (14:47→20:58)
[2017-06-30] MEDS: DUONEB NEB SCH ×3 (06:00→21:38)
[2017-06-30] MEDS: SYNTHROID PO SCH (06:24)
[2017-06-30] MEDS: PROTONIX PO SCH (06:24)
--- NOTE | 2017-06-30 08:23 | RS.PTINEVL ---
Subjective - Patient information Date of Evaluation: 06/29/17 Date of Arrival on Unit: 06/26/17 Admitted From:: [facility] Diagnosis: pneumonia Usual Living Arrangement: Intermediate Living Arrangement Comments: Lives in [facility] appts. pt lives alone. Home Environment: Level/No stairs Medical History: COPD, Cancer (lung) Medical History Comments:: CAD, Surgical History Comments:: upper left lung removed, pacemaker Medications: see chart Subjective Information/ Patient Comments:: pt states she feels weak. pt states she is having pain in lumbar area. - Level of function Prior to this admission, the patient could do the following:: Independent ADL's , Independent Ambulation Abilities prior to this admission: pt amb with RWX, pt was independent with sponge bath, did not get into shower due to fear of falling. Current Level of Function: Partially Dependent Current Equipment Used at Home: rwx Pain Assessement - Location low back Description: Aching Intensity: 6 Pain Behavior: Guarding, Facial Grimacing Pain Aggravating Factors: Changing Position, Exercise/Activity, Standing Pain Alleviating Factors: Medication Interventions - Objective Patient Orientation: Person, Place, Time, Situation Current Interventions: IV's, Oxygen, Telemetry Range of Motion - ROM Right Upper Extremity AROM: WFL's Left Upper Extremity AROM: WFL's Right Lower Extremity AROM: WFL's Left Lower Extremity AROM: WFL's Muscle Strength - Muscle Strength Right Upper Extremity Strength: Mild Weakness (shld flex 4-/5, elbow flex/ext 4/ 5, weak signals intelligence analyst) Left Upper Extremity Strength: Mild Weakness (shld flex 4-/5, elbow flex/ext 4/5 , weak signals intelligence analyst) Right Lower Extremity Strength: Mild Weakness (hip flex 4-/5, knee flex/ext 4/5 , ankle Df/PF 4/5) Left Lower Extremity Strength: Mild Weakness (hip flex 4-/5, knee flex/ext 4/5, ankle Df/PF 4/5) Sensation - Sensation Right Upper Extremity Sensation: Intact/Normal Left Upper Extremity Sensation: Intact/Normal Right Lower Extremity Sensation: Impaired Left Lower Extremity Sensation: Impaired Comments: c/o n/t B feet Palpation Palpation Findings: Tenderness, Muscle Guarding (lumbar area) Balance - Sitting Balance and Reactions Static Sitting Balance: Good Dynamic Sitting Balance: Fair Sitting Equilibrium Reactions: Delayed Left, Delayed Right Sitting Protective Reactions: Delayed Left, Delayed Right - Standing Balance and Reactions Static Standing Balance: Fair Dynamic Standing Balance: Poor Standing Equilibrium Reactions: Delayed Left, Delayed Right Standing Protective Reactions: Delayed Left, Delayed Right - Comments Balance Assessment Comments: pt able to maintain sitting balance reaching across midline, standing pt unable to maintain balance with challenges to balance. Functional Mobility - Bed Mobility Rolling R/L: Min Assist Supine to Sit: Min Assist Sit to Supine: Min Assist - Transfers Sit to Stand: Min Assist Stand to Sit: Min Assist - Safety Awareness Safety Awareness: Fair BECCA INDEX SCORE: n/a Ambulation - Ambulation Assistive Device Used: Rolling Walker Orthotic/Prosthetic Device: No Distance: 40ft Assistance needed with Ambulation: Min Assist Quality of Ambulation: with O2 Gait Deviations: Narrow Based gait, Forward posture, Short stride Ambulation Comments: pt amb with flexed posture, decreased step length, as well as narrow GREGORY Factors Affecting Ambulation: Decreased Balance, Breathing/O2 Saturation, Pain, Weakness, Decreased Safety, Limited Endurance Treatment time - Time with patient Total treatment time: 26 Patient Education - Education Patient Education: Activity Modification, Education of Plan of Care Teaching Recipient: Patient Teaching Methods: Discussion Comments: Discussion with pt regarding POC Assessment - Assessment Problem List:: Decreased level of function, Requires training/education, Decreased safety/Risk of falls, Weakness, Pain limits previous level of function Rehab Potential: Good Further Therapy Indicated?: Yes Evaluation Complexity: HISTORY: Medium (COPD, pneumonia, [place], ), EXAM OF BODY SYSTEMS: Medium (O2, strength, balance, gait, posture), CLINICAL PRESENTATION: Medium (evolving), CLINICAL DECISION MAKING: Medium Short Term Goals GOAL #1: pt demonstrate independence with rolling and scooting up in bed Goal to be met by: 07/02/17 GOAL #2: pt transfer sup to/from sit to/from stand CGA Goal to be met by: 07/02/17 GOAL #3: pt amb 100ft with rwx with O2 with CGA with no LOB Goal to be met by: 07/02/17 Chief Of Hospital Medicine Goals GOAL #1: pt transfer sup to/from sit to/from stand independently Goal to be met by: 07/05/17 GOAL #2: pt amb 150ft with rwx with O2 with SBA with no LOB Goal to be met by: 07/05/17 GOAL #3: Improved strength BLE 4 to 4+/5 Goal to be met by: 07/05/17 Plan Plan of Care: Therapeutic EX, Therapeutic Activity Other:: gait training Frequency of Treatment: 1-2 X day, as tolerated Duration of Treatment: 6 days Anticipated Discharge Destination: Home Has the Physician been added for Co-signature?: Yes
[2017-06-30] MEDS: TIMOPTIC 0.5% OPTH OP SCH (10:06)
[2017-06-30] MEDS: ROCEPHIN 1 GM in SODIUM CHLORIDE 50 ML IV SCH (10:06)
[2017-06-30] MEDS: FERROUS SULFATE PO SCH (10:07)
[2017-06-30] MEDS: ZITHROMAX PO SCH (10:07)
[2017-06-30] MEDS: VITAMIN D PO SCH (10:07)
[2017-06-30] MEDS: CALCIUM 500 + VIT D 200 MG TABLET PO SCH (10:07)
[2017-06-30] MEDS: SOLU-MEDROL 40 MG IVP SCH ×2 (10:07→21:14)
[2017-06-30] MEDS: NON-FORMULARY MEDICATION (Cyanocobalamin (Vitamin B-12) [Vitamin B-12] 100 MCG) PO SCH (10:08)
[2017-06-30] MEDS: LUMIGAN OP SCH (10:10)
[2017-06-30] MEDS ORDERED: DUONEB NEB STA (10:14)
[2017-06-30] MEDS: HUMULIN R SUBCUT PRN ×2 (17:43→21:17)
[2017-06-30] MEDS ORDERED: LUMIGAN OP SCH (21:00)
[2017-07-01] MEDS: DUONEB NEB SCH ×3 (04:28→14:30)
[2017-07-01] MEDS: SYNTHROID PO SCH (06:01)
[2017-07-01] MEDS: PROTONIX PO SCH (06:01)
[2017-07-01] MEDS: TIMOPTIC 0.5% OPTH OP SCH (09:41)
[2017-07-01] MEDS: ROCEPHIN 1 GM in SODIUM CHLORIDE 50 ML IV SCH (09:41)
[2017-07-01] MEDS: ZITHROMAX PO SCH (09:42)
[2017-07-01] MEDS: NON-FORMULARY MEDICATION (Cyanocobalamin (Vitamin B-12) [Vitamin B-12] 100 MCG) PO SCH (09:42)
[2017-07-01] MEDS: FERROUS SULFATE PO SCH (09:42)
[2017-07-01] MEDS: CALCIUM 500 + VIT D 200 MG TABLET PO SCH (09:42)
[2017-07-01] MEDS: VITAMIN D PO SCH (09:42)
[2017-07-01] MEDS: SOLU-MEDROL 40 MG IVP SCH (09:43)
[2017-07-01] MEDS: HUMULIN R SUBCUT PRN ×2 (12:00→17:29)
--- NOTE | 2017-07-01 12:16 | DI ---
EXAM: Chest, two views, 07/01/2017 HISTORY: Follow up infiltrates COMPARISON: 06/27/2017, 07/23/2016 FINDINGS / IMPRESSION: Left-sided pacer device is in place. Right chest port well positioned. Hear t size is stable. Interstitial prominence at the lateral and superior aspect of the right chest appea rs stable. Dense opacities within the central and lower aspect of the left chest also appear grossly stable. These findings are nonspecific and could relate to pneumonia, tumor as well as possible scar ring and fibrosis. Left-sided pleural effusion not excluded. The area of the previously described left-sided cavitary lesion is obscured by the pacer device. Follow-up CT of the chest may be of benefit in further characterization.
[2017-07-01 15:36] VITALS: BP 104/57; TEMP 97.3
--- NOTE | 2017-07-08 10:05 | PN ---
DATE OF SERVICE: 06/30/17 CHIEF COMPLAINT: "Shortness of breath" SUBJECTIVE: She has had weeks of progressive weight loss, increasing weakness and many chronic problems thus far with no definite malignant cause. She has limited her care and evaluation due to her age and situation, in particular, an evaluation for recurrent iron deficiency anemia. She has gone without a colonoscopy ( offered by Dr. Sage). She presented to the ED after nearly falling a couple of times; was felt on chest x-ray to possibly have a pneumonia (and of course a possible pulmonary malignancy). She has been on and off short of breath, which has been improved with oxygen that she has been wearing here. She has had hemoptysis. She was started on Rocephin, Azithromycin, Duonebs and 40 mg of Solu -Medrol and has been feeling overall somewhat better. Her gait is still poor. She tried to walk to the door today and was unable to do that on her own. From the onset, she is believing that she will have to leave [facility] and at least use Rehab for awhile. Her blood sugars have elevated with the steroids. INTERVAL CHANGES: Less fatigue; maybe feels a little less weak with walking. Still significant weakness, getting physical therapy. She is eating some without diarrhea or constipation. Drinking and voiding without dysuria. Sleeping on and off. She has been accepted at [facility]. Iron levels earlier today were normal. REVIEW OF SYSTEMS: GENERAL: As above, fatigued. CHEST: Continued occasional cough; no hemoptysis. CARDIOVASCULAR: No chest pain or ankle edema.. PHYSICAL EXAMINATION: V/S: Temperature 97.5 oral. Pulse 74. BP 102/59. Respirations 28. GENERAL: No obvious distress. CHEST: Diminished. Soft expiratory wheeze. CARDIOVASCULAR: Regular/paced on monitor. S1, S2 without murmur. No peripheral edema. GI: Protuberant due to position. No organomegaly, rebound or guarding. LABS/X-RAYS: White count 16 up from 10 (with steroids), hemoglobin 8.8 up from 7.9. Iron was 66 normal, total binding was low at 119, % sat 55 and ferritin elevated at 2000 corresponds with earlier sed rate of 106. ASSESSMENT: REASON FOR ADMISSION AND ONGOING ACUTE CARE: # Weakness # Gait decline - acute on chronic # Hemoptysis # Cough # Abnormal chest x-ray which could be consistent with a degree of pneumonia but also the potential for malignancy # Malnutrition # Hyponatremia # Hyperglycemia - related to steroids # Acute anemia - associated with probably some degree of dilution # BNP 217 # Pyuria not that suggestive for UTI PLAN: 1. Medications - reviewed; same. 2. Laboratories - reviewed - same 3. Imaging - asking for repeat chest x-ray in the morning 4. Consultants - none 5. Diet encouraged 6. Discharge planning: she is agreeable to [facility]. A bed has been arranged and it will probably be tomorrow if her chest x-ray shows nothing of significance. JANENE
--- NOTE | 2017-07-08 10:54 | PN ---
DATE OF SERVICE: 06/29/17 HISTORY OF PRESENT ILLNESS: She has had weeks of progressive weight loss, increasing weakness and many chronic problems thus far with no definite malignant cause. She has limited her care and evaluation due to her age and situation, in particular, an evaluation for recurrent iron deficiency anemia. She has gone without a colonoscopy ( offered by Dr. Sage). She presented to the ED after nearly falling a couple of times; was felt on chest x-ray to possibly have a pneumonia (and of course a possible pulmonary malignancy). She has been on and off short of breath, which has been improved with oxygen that she has been wearing here. She has had hemoptysis. She was started on Rocephin, Azithromycin, Duonebs and 40 mg of Solu -Medrol and has been feeling overall somewhat better. Her gait is still poor. She tried to walk to the door today and was unable to do that on her own. From the onset, she is believing that she will have to leave [facility] and at least use Rehab for awhile. Her blood sugars have elevated with the steroids. PHYSICAL EXAMINATION: V/S: Temperature 98.7, pulse 84, respirations 12, BP 132/80. GENERAL: No obvious distress. INTEGUMENT: Integument. Eye grounds are pink to pale. Mucous membranes are moist. No ankle edema. HEENT: Facial symmetry. Pupils are equal. NECK: No mass or thyroid. CHEST: Anteriorly clear. CARDIOVASCULAR: S1, S2 without murmur. No peripheral edema. GI: Nontender without mass. LABS: Sodium 129, blood sugar 250, white count from 9.7 to 10.94, hemoglobin 9.6 to 7.9 and sed rate 106. Her BNP is 217. Urine has grown E. coli only 70 to 80, 000 but it is sensitive to everything. Substrate analysis for anemia requested. ASSESSMENT: REASON FOR ADMISSION AND ONGOING ACUTE CARE: # Weakness # Gait decline - acute on chronic # Hemoptysis # Cough # Abnormal chest x-ray which could be consistent with a degree of pneumonia but also the potential for malignancy # Malnutrition # Hyponatremia # Hyperglycemia - related to steroids # Acute anemia - associated with probably some degree of dilution # BNP 217 # Pyuria not that suggestive for UTI PLAN: 1. Medications reviewed - continue 2. Labs reviewed - daily chemistry and CBC 3. Fluid restriction 1200 cc for 24 hours 4. Advertising Account Manager asked to seek out rehab placement 5. We may give blood and even Iron tomorrow 6. Diet encouraged - at the [facility] will have dietary review for a longer period of time 7. Fluids - slow these to none 8. Code status full at this point MTDD
== END 2017-07-01 17:57 | DRG 194 ==
LOC: ED 09:40 → MEDSURG B 15:36
PROVIDERS: ADMIT Family Medicine; ATTEND Family Medicine
DX: J18.1 Lobar pneumonia, unspecified organism (principal); E87.1 Hypo-osmolality and hyponatremia; R04.2 Hemoptysis; E46 Unspecified protein-calorie malnutrition; N39.0 Urinary tract infection, site not specified; R91.8 Other nonspecific abnormal finding of lung field; R06.02 Shortness of breath; R53.1 Weakness; J44.9 Chronic obstructive pulmonary disease, unspecified; D50.9 Iron deficiency anemia, unspecified; E86.0 Dehydration; R26.89 Other abnormalities of gait and mobility; B96.20 Unspecified Escherichia coli [E. coli] as the cause of diseases classified elsewhere; Z95.0 Presence of cardiac pacemaker; Z90.2 Acquired absence of lung [part of]; Z85.118 Personal history of other malignant neoplasm of bronchus and lung; Z79.899 Other long term (current) drug therapy
CPT/HCPCS: 36415; 80048; 80053; 81001; 82550; 82728; 82746; 82803; 82962; 83540; 83550; 83605; 83735; 83880; 84145; 84466; 84484; 85025; 85045; 85379; 85651; 87040; 87070; 87081; 87086; 87186; 87502; 87651; 93005; 93010; 94640; 96365; 99284; 99285

== ENCOUNTER 2017-07-20 09:42 | Outpatient (CLI) ==
[2017-07-20] MEDS ORDERED: SALINE FLUSH (PORT ACCESS TRAY USE ONLY) IVF ONE (10:18)
[2017-07-20] MEDS ORDERED: HEPARIN 500 UNIT/5 ML (PORT ACCESS TRAY ONLY) IVF ONE (10:18)
[2017-07-20] MEDS ORDERED: INFED 1,000 MG in SODIUM CHLORIDE 500 ML IV STA (10:27)
== END 2017-07-20 09:43 | disposition home or self-care (01) ==
LOC: OPMED 09:42
PROVIDERS: ATTEND Family Medicine
DX: N18.3 Chronic kidney disease, stage 3 (moderate) (principal); D63.1 Anemia in chronic kidney disease; E61.1 Iron deficiency; K92.2 Gastrointestinal hemorrhage, unspecified
CPT/HCPCS: 96365; 96366

== ENCOUNTER 2017-09-10 12:20 | Observation (INO) ==
[2017-09-10 12:56] VITALS: BMI 17.2
[2017-09-10] MEDS ORDERED: SODIUM CHLORIDE 500 ML IV STA (13:51)
[2017-09-10] MEDS: SODIUM CHLORIDE 1,000 ML IV SCH ×3 (14:15→21:56)
[2017-09-10] MEDS ORDERED: ACETAMINOPHEN 325 MG PO PRN (17:45)
[2017-09-10] MEDS ORDERED: BIMATOPROST OPTH OP SCH (21:00)
[2017-09-11] MEDS ORDERED: NON-FORMULARY MEDICATION (Levothyroxine Sodium [Synthroid] 75 MCG) PO SCH (06:30)
[2017-09-11] MEDS ORDERED: ACETAMINOPHEN 500 MG PO PRN (07:35)
[2017-09-11] MEDS ORDERED: [UNRECOGNIZED DRUG - OTHER] PO SCH (09:00)
[2017-09-11] MEDS ORDERED: NON-FORMULARY MEDICATION (Cyanocobalamin (Vitamin B-12) [Vitamin B-12] 100 MCG) PO SCH (09:00)
[2017-09-11] MEDS ORDERED: NON-FORMULARY MEDICATION (Cholecalciferol (Vitamin D3) [Vitamin D3] 400 UNIT) PO SCH (09:00)
[2017-09-11] MEDS ORDERED: CALCIUM CARBONATE PO SCH (09:00)
[2017-09-11] MEDS ORDERED: NON-FORMULARY MEDICATION (Ferrous Sulfate [Ferrous Sulfate] 325 MG) PO SCH (09:00)
[2017-09-11] MEDS ORDERED: VITAMIN D3 E PO SCH (09:00)
[2017-09-11] MEDS: CYANOCOBALAMIN 3000 MCG PO SCH (09:38)
[2017-09-11] MEDS: FERROUS GLUCONATE 240 MG PO SCH (09:38)
[2017-09-11] MEDS: PROTONIX PO SCH (09:39)
[2017-09-11] MEDS: TIMOLOL MALEATE 0.5% OP SCH (09:39)
[2017-09-11] MEDS: SODIUM CHLORIDE 1,000 ML IV SCH ×2 (10:01→22:23)
[2017-09-11] MEDS: CALCIUM CARBONATE PO SCH (11:08)
[2017-09-11] MEDS: [UNRECOGNIZED DRUG - OTHER] PO SCH (11:08)
[2017-09-11] MEDS: VITAMIN D3 E PO SCH (11:08)
[2017-09-11] MEDS: NON-FORMULARY MEDICATION (Cholecalciferol (Vitamin D3) [Vitamin D3] 2,000 UNIT) PO SCH (11:08)
[2017-09-11] MEDS: LEVOTHYROXINE SODIUM 88 MCG PO SCH (11:09)
[2017-09-11] MEDS: BIMATOPROST OPTH OP SCH (21:58)
[2017-09-12] MEDS ORDERED: SYNTHROID ONE (05:50)
[2017-09-12] MEDS: PROTONIX PO SCH (05:56)
[2017-09-12] MEDS: LEVOTHYROXINE SODIUM 88 MCG PO SCH (05:56)
[2017-09-12] MEDS: TIMOLOL MALEATE 0.5% OP SCH (08:52)
[2017-09-12] MEDS: FERROUS GLUCONATE 240 MG PO SCH (08:52)
[2017-09-12] MEDS: CALCIUM CARBONATE PO SCH (08:52)
[2017-09-12] MEDS: [UNRECOGNIZED DRUG - OTHER] PO SCH (08:52)
[2017-09-12] MEDS: NON-FORMULARY MEDICATION (Cholecalciferol (Vitamin D3) [Vitamin D3] 2,000 UNIT) PO SCH (08:52)
[2017-09-12] MEDS: VITAMIN D3 E PO SCH (08:52)
[2017-09-12] MEDS: CYANOCOBALAMIN 3000 MCG PO SCH (08:53)
[2017-09-12] MEDS: SODIUM CHLORIDE 1,000 ML IV SCH ×2 (10:13→21:08)
[2017-09-12] MEDS: BIMATOPROST OPTH OP SCH (21:08)
[2017-09-12] MEDS ORDERED: SODIUM CHLORIDE 1,000 ML IV SCH (21:30)
[2017-09-13] MEDS: PROTONIX PO SCH (05:43)
[2017-09-13] MEDS: LEVOTHYROXINE SODIUM 88 MCG PO SCH (05:44)
[2017-09-13] MEDS: VITAMIN D3 E PO SCH (08:46)
[2017-09-13] MEDS: CYANOCOBALAMIN 3000 MCG PO SCH (08:46)
[2017-09-13] MEDS: [UNRECOGNIZED DRUG - OTHER] PO SCH (08:46)
[2017-09-13] MEDS: FERROUS GLUCONATE 240 MG PO SCH (08:46)
[2017-09-13] MEDS: CALCIUM CARBONATE PO SCH (08:46)
[2017-09-13] MEDS: TIMOLOL MALEATE 0.5% OP SCH (08:47)
[2017-09-13] MEDS: NON-FORMULARY MEDICATION (Cholecalciferol (Vitamin D3) [Vitamin D3] 2,000 UNIT) PO SCH (08:47)
[2017-09-13] MEDS ORDERED: SYNTHROID PO ONE (16:00)
[2017-09-13] MEDS: BIMATOPROST OPTH OP SCH (20:26)
[2017-09-14] MEDS: PROTONIX PO SCH (05:46)
[2017-09-14] MEDS: LEVOTHYROXINE SODIUM 88 MCG PO SCH (05:47)
[2017-09-14] MEDS: [UNRECOGNIZED DRUG - OTHER] PO SCH (08:34)
[2017-09-14] MEDS: CALCIUM CARBONATE PO SCH (08:34)
[2017-09-14] MEDS: VITAMIN D3 E PO SCH (08:34)
[2017-09-14] MEDS: NON-FORMULARY MEDICATION (Cholecalciferol (Vitamin D3) [Vitamin D3] 2,000 UNIT) PO SCH (08:36)
[2017-09-14] MEDS: CYANOCOBALAMIN 3000 MCG PO SCH (08:36)
[2017-09-14] MEDS: FERROUS GLUCONATE 240 MG PO SCH (08:36)
[2017-09-14] MEDS: TIMOLOL MALEATE 0.5% OP SCH (08:37)
[2017-09-14] MEDS: BIMATOPROST OPTH OP SCH (20:32)
[2017-09-15] MEDS: LEVOTHYROXINE SODIUM 88 MCG PO SCH (05:59)
[2017-09-15] MEDS: PROTONIX PO SCH (05:59)
[2017-09-15] MEDS: CALCIUM CARBONATE PO SCH (08:21)
[2017-09-15] MEDS: [UNRECOGNIZED DRUG - OTHER] PO SCH (08:21)
[2017-09-15] MEDS: CYANOCOBALAMIN 3000 MCG PO SCH (08:21)
[2017-09-15] MEDS: VITAMIN D3 E PO SCH (08:21)
[2017-09-15] MEDS: FERROUS GLUCONATE 240 MG PO SCH (08:22)
[2017-09-15] MEDS: NON-FORMULARY MEDICATION (Cholecalciferol (Vitamin D3) [Vitamin D3] 2,000 UNIT) PO SCH (08:22)
[2017-09-15] MEDS: TIMOLOL MALEATE 0.5% OP SCH (08:23)
--- NOTE | 2017-09-15 10:30 | PN ---
DATE OF SERVICE: 09/12/17 CHIEF COMPLAINT: Weakness. BRIEF HISTORY OF PRESENT ILLNESS: Recent discharge at [facility] with my reservations. She had a followup appointment in the office and presented with significant weakness. This was associated with hypotension with blood pressure of 70/48 and tachycardic to 122. She appeared clinically dehydrated and was without fever. She was made a direct admit. She was given a slow bolus because of a history of heart failure and followed with maintenance Saline. She feels better. Her initial white count was 13, hemoglobin 12.8 and BNP was 197. Sodium 131, calcium 10.5. TSH 31 , free T3 0.8 low and free T4 0.5 low. UA was clear. PHYSICAL EXAMINATION: V/S: Temperature 97.6, pulse 88, BP 94/47, respirations 16. GENERAL: Much more alert. INTEGUMENT: Improved turgur, slightly pale. Mucous membranes now moist. NECK: No mass or thyroid. CHEST: Kyphotic and less rhonchi. CARDIOVASCULAR: Grade II/ systolic murmur, no peripheral edema. GI: Nontender. ASSESSMENT: # Weakness - improved associated with: # Hypotension 70/48 - resolved # Tachycardia - sinus and related to dehydration - resolved # Dehydration # Progressive weight loss # Adult failure to thrive # Shortness of breath without hypoxemia - related to the above # Malnutrition # Hypercalcemia 10.5 # Hyponatremia - 131 # Hypothyroidism - incomplete thyroid replacement with elevated TSH and low Free T3 and Free T4 PLAN: 1. Slow IV fluids 2. Encourage diet 3. Start therapy 4. Talking about possible placement; back to [facility]
--- NOTE | 2017-09-15 10:34 | PN ---
DATE OF SERVICE: 09/13/17 CHIEF COMPLAINT: Weakness. BRIEF HISTORY OF PRESENT ILLNESS: Recent discharge at [facility] with my reservations. She had a followup appointment in the office and presented with significant weakness. This was associated with hypotension with blood pressure of 70/48 and tachycardic to 122. She appeared clinically dehydrated and was without fever. She was made a direct admit. She was given a slow bolus because of a history of heart failure and followed with maintenance Saline. She feels better. Her initial white count was 13, hemoglobin 12.8 and BNP was 197. Sodium 131, calcium 10.5. TSH 31 , free T3 0.8 low and free T4 0.5 low. UA was clear. INTERVAL COURSE: Her appetite is slightly improved and she is eating a little more. She is now voiding. There is no dysuria. She is having stools with no diarrhea. PHYSICAL EXAMINATION: V/S: Temperature 98, pulse 81, BP 109/64, respirations 16. GENERAL: Pleasant, in no obvious distress. INTEGUMENT: Improved turgor, slightly pale. Mucous membranes now moist. NECK: No mass or thyroid. CHEST: Clear, slightly kyphotic. CARDIOVASCULAR: Grade II/ systolic murmur, no peripheral edema. GI: Nontender. ASSESSMENT: # Weakness - improved associated with: # Hypotension 70/48 - resolved # Tachycardia - sinus and related to dehydration - resolved # Dehydration # Progressive weight loss # Adult failure to thrive # Shortness of breath without hypoxemia - related to the above # Malnutrition # Hypercalcemia 10.5 # Hyponatremia - 131 # Hypothyroidism - incomplete thyroid replacement with elevated TSH and low Free T3 and Free T4 PLAN: 1. Slow IV fluids 2. Encourage diet 3. Start therapy 4. Talking about possible placement; back to [facility]
--- NOTE | 2017-09-15 10:41 | PN ---
DATE OF SERVICE: 09/14/17 CHIEF COMPLAINT: Weakness. BRIEF HISTORY OF PRESENT ILLNESS: Ms. Zuniga was seen in the office on 09/10. This was after being released from [facility] a few days before. She was hypotensive and tachycardic. Once brought here and given a fluid bolus and subsequent fluids, she had marked improvement in her vitals and her wellbeing. She was found to be significantly hypothyroid and indicated that she was not taking her thyroid medication regularly. She was just "too weak". She has significant previous medical issues related to abnormal chest x-rays, hemoccult positive stools and chronic anemia for which with her age and situation she has foregone any significant evaluation; this raises the possibility of even occult malignancies. Her family is aware. She is a DNR. PHYSICAL EXAMINATION: V/S: Temperature 98.3, pulse 75, BP 108/59, respirations 24 and all of these are stable. LABS: No labs from 09/12. ASSESSMENT: # Weakness - improved associated with: # Hypotension 70/48 - resolved # Tachycardia - sinus and related to dehydration - resolved # Dehydration # Progressive weight loss # Adult failure to thrive # Shortness of breath without hypoxemia - related to the above # Malnutrition # Hypercalcemia 10.5 # Hyponatremia - 131 # Hypothyroidism - incomplete thyroid replacement with elevated TSH and low Free T3 and Free T4 PLAN: 1. Medications reviewed - continue the same. 2. Labs - none. 3. Imaging - chest x-ray before discharge. 4. IV - none. 5. Code status DNR. 6. Discharge planning - she has been accepted at [facility], going tomorrow. 7. I am available if family or others want to talk. JANENE
--- NOTE | 2017-09-15 16:02 | DI ---
EXAM: CHEST FRONTAL AND LATERAL VIEWS HISTORY: Shortness of breath, cough. COMPARISON: 07/01/2017 FINDINGS: Stable prominent heart size. Pacemaker unit is stable. Right port catheter is again note d. The left lung has decreased volume and there is a small loculated pleural effusion along the arti phery of the lung extending from the base to the apex. A central air fluid level within the lung sug gesting a cavitary space with internal fluid and possible infection. Similar picture has been seen o n previous exams. Right lung remains relatively clear. No visible pneumothorax IMPRESSION: Left hemithorax abnormalities remain present suggesting probable infectious process. Neoplasia not e xcluded.
[2017-09-15 16:27] VITALS: BP 100/59; TEMP 98.1
== END 2017-09-15 17:31 | disposition short-term general hospital (02) ==
LOC: UNDOADMIN 12:20 → INTOOBSV 12:20 → MEDSURG B 12:20
PROVIDERS: ADMIT Family Medicine; ATTEND Family Medicine
DX: I95.9 Hypotension, unspecified (principal); R53.1 Weakness; R00.0 Tachycardia, unspecified; R63.4 Abnormal weight loss; R06.02 Shortness of breath; R62.7 Adult failure to thrive; E46 Unspecified protein-calorie malnutrition; E83.52 Hypercalcemia; E87.1 Hypo-osmolality and hyponatremia; E86.0 Dehydration; E03.9 Hypothyroidism, unspecified; Z79.899 Other long term (current) drug therapy
CPT/HCPCS: 36415; 80048; 81001; 83880; 84439; 84443; 84481; 85025; 85610; 96360; 96361; 97802